=== PATIENT | male | born 1985 | race Hispanic/Latino ===

== ENCOUNTER 2018-04-01 19:15 | Emergency (ER) | payer OTHER ==
[2018-04-01] MEDS ORDERED: Ondansetron PF 4 MG/2 ML Vial ONE (19:25)
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
[2018-04-01] MEDS ORDERED: Lidocaine 1% w/Epinephrine 1:100K 30 ML VIAL ONE (20:29)
[2018-04-01] MEDS ORDERED: Morphine 4 MG/ML VIAL ONE (20:53)
[2018-04-01] MEDS ORDERED: Adacel (T-DAP) 0.5 ML SYRINGE ONE (20:53)
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
[2018-04-01] MEDS ORDERED: Acetaminophen 500 MG TAB ONE (21:53)
== END 2018-04-01 21:55 | disposition home or self-care (01) ==
LOC: NAV ERS 19:15
DX: S01.111A Laceration without foreign body of right eyelid and periocular area, initial encounter (principal); I10 Essential (primary) hypertension; J45.909 Unspecified asthma, uncomplicated; Z79.899 Other long term (current) drug therapy; Y04.0XXA Assault by unarmed brawl or fight, initial encounter
CPT/HCPCS: 12011; 36416; 70450; 70486; 72125; 90471; 90715; 96374; 96375; J2001; J2270; J2405